=== PATIENT | female | born 1970 | race Caucasian/White ===

== ENCOUNTER 2018-06-18 18:49 | Emergency (ER) | payer MEDICAID ==
[~2018-06-18] VITALS: Ht 180.3 cm; Wt 133.4 kg
[2018-06-18] MEDS ORDERED: LORA0.5T PO (19:04)
[2018-06-18] MEDS ORDERED: IBUP-1953 PO (19:05)
[2018-06-18] MEDS ORDERED: LORA10TA7 PO (19:05)
[2018-06-18] MEDS ORDERED: LEVO75TA7 PO (19:05)
--- NOTE | 2018-06-18 19:18 | NUR ---
Dr. Serra at bedside for MSE.
--- NOTE | 2018-06-18 19:44 | NUR ---
Patient discharged to home in stable conditon. Written and verbal after care instructions given. Patient verbalizes understanding of instructions. Patient ambulated out of ER with steady gait, no acute signs of distress, VSS, all belongings taken.
[2018-06-18 19:45] VITALS: BP 159/97
== END 2018-06-18 19:46 | disposition home or self-care (01) ==
LOC: ER 19:10
DX: F41.9 Anxiety disorder, unspecified (principal); R20.2 Paresthesia of skin; E03.9 Hypothyroidism, unspecified
CPT/HCPCS: A4663